=== PATIENT | female | born 1980 | race Caucasian/White ===

== ENCOUNTER → 2023-04-23 19:38 | Outpatient (ROUT) | payer OTHER, SELFPAY ==
[2023-04-26 17:04] LABS: Creatinine Urine Random 133.8 mg/dL
[2023-04-26 17:13] LABS: Protein (Total) Urine Random < 5 mg/dL (0-12); Protein Creatinine Ratio Urine 0.03 GRAM/24H
== END ==
PROVIDERS: PCP Naturopath; Visit Provider Advanced Practice Midwife
DX: Z13.9 Encounter for screening, unspecified (principal)
CPT/HCPCS: 82570; 84156